=== PATIENT | male | born 1955 | race Caucasian/White ===

== ENCOUNTER 2017-04-11 02:35 | Emergency (ER) | payer OTHER ==
--- NOTE | 2017-04-11 03:54 | EDM.PDOC ---
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 The patient was getting off the truck, missed his step, and fell onto his back onto gravel, about a 3 foot fall, striking the back of his head. The gas appliance mechanic states that the patient was unconscious for about 15 seconds , then, when he woke up, needed some help to walk. He reportedly kept saying that he did not remember the fall. From the patient's perspective, he remembers getting ready to get down off the truck, and the next thing he remembers is being helped to another vehicle. He complains of a dull posterior headache, and on examination, there is a laceration to his posterior scalp. No recent illnesses. The patient does not have a PCP. Posterior Head Pain Score (Numeric/FACES): 5 - Related Data Allergies Allergy/AdvReac Type Severity Reaction Status Date / Time shellfish derived Allergy Hives Verified 04/11/17 02:43 Home Meds: Home Meds . [No Known Home Meds] 04/11/17 [History] Past Medical History - Past Surgical History HEENT Surgical History: Reports: Oral Surgery ([place] teeth extraction), Tonsillectomy GI Surgical History: Reports: Hernia, Inguinal (left) Musculoskeletal Surgical History: Reports: ORIF (right ankle) Social & Family History - Family History Family Medical History: Noncontributory - Tobacco Use Smoking Status *Q: Current Every Day Smoker Years of Tobacco use: 45 Packs/Tins Daily: 1 Packs/Tins Daily Comment: Down from 2 ppd - Caffeine Use Caffeine Use: Reports: Coffee - Alcohol Use Alcohol Use History: Yes Date/Time of Last Drink Comment: None since 2002 - Recreational Drug Use Recreational Drug Use: No - Living Situation & Occupation Living situation: Reports: Single, Alone 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 ED EXAM, HEAD INJURY - Physical Exam Exam: See Below Exam Limited By: No Limitations General Appearance: Alert, WD/WN, No Apparent Distress Head: Normocephalic, Scalp Lacerations (Approximately 2 cm, irregular, on the posterior midline scalp, with minimal associated swelling, but is mildly bleeding) Eyes: Bilateral Eye: EOMI, Normal Inspection, PERRL Ears: Normal External Exam, Normal Canal, Hearing Grossly Normal, Normal TMs Nose: Normal Inspection, Normal Mucousa, No Blood Throat/Mouth: Normal Inspection, Normal Lips, Normal Teeth, Normal Gums, Normal Oropharynx, Normal Voice, No Airway Compromise Neck: Non-Tender, Full Range of Motion, Normal Alignment, Normal Inspection Respiratory: No Respiratory Distress, Lungs Clear, Normal Breath Sounds, No Accessory Muscle Use Cardiovascular: Normal Peripheral Pulses, Regular Rate, Rhythm, No Gallop, No JVD, No Murmur, No Rub GI/Abdominal Exam: Normal Bowel Sounds, Soft, Non-Tender, No Organomegaly, No Distention, No Abnormal Bruit, No Mass (Male) Exam: Deferred Rectal (Males) Exam: Deferred Back Exam: Full Range of Motion, Normal Inspection, NT Extremities: Normal Inspection, Normal Range of Motion, No Pedal Edema, Normal Capillary Refill 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 As Tested, No Motor/Sensory Deficits, Alert, Oriented x 3 Skin: Normal Color, Warm/Dry EKG INTERPRETATION EKG Date: 04/11/17 Time: 04:25 Rhythm: NSR Rate (Beats/Min): 83 [place]: Normal P-Wave: Present QRS: Normal ST-T: Normal QT: Normal Comparison: NA - No Prior EKG Course - Vital Signs Last Recorded V/S: Last Vital Signs Temp 35.9 C 04/11/17 02:40 Pulse 81 04/11/17 02:40 Resp 16 04/11/17 02:40 BP 142/99 H 04/11/17 02:40 Pulse Ox 94 L 04/11/17 02:40 - Orders/Labs/Meds Orders: Active Orders 24 hr Category Date Time Status EKG Documentation Completion [RC] STAT Care 04/11/17 03:47 Active Cervical Spine wo Cont [CT] Stat Exams 04/11/17 03:46 Taken Head wo Cont [CT] Stat Exams 04/11/17 03:45 Taken DRUG SCREEN, URINE [URCHEM] Stat Lab 04/11/17 03:47 Ordered Labs: Laboratory Tests 04/11/17 04/11/17 04/11/17 Range/Units 04:05 04:05 04:05 WBC 18.78 H (4.23-9.07) K/mm3 RBC 5.31 (4.63-6.08) M/mm3 Hgb 15.9 (13.7-17.5) gm/L Hct 47.0 (40.1-51.0) % MCV 88.5 (79.0-92.2) fl MCH 29.9 (25.7-32.2) pg MCHC 33.8 (32.2-35.5) g/dl RDW Std Deviation 44.9 H (35.1-43.9) fL Plt Count 220 (163-337) K/mm3 MPV 9.8 (9.4-12.3) fl Neutrophils % (Manual) 86 H (40-60) % Band Neutrophils % 0 (0-10) % Lymphocytes % (Manual) 7 L (20-40) % Atypical Lymphs % 0 % Monocytes % (Manual) 7 (2-10) % Eosinophils % (Manual) 0 L (0.8-7.0) % Basophils % (Manual) 0 L (0.2-1.2) Platelet Estimate Adequate Plt Morphology Comment Normal RBC Morph Comment Normal PT 11.5 (8.0-13.0) SECONDS INR 1.07 APTT 25 (22-36) SECONDS Sodium 141 (136-145) mEq/L Potassium 4.1 (3.5-5.1) mEq/L Chloride 103 (98-107) mEq/L Carbon Dioxide 26 (21-32) mEq/L Anion Gap 16.1 H (5-15) BUN 14 (7-18) mg/dL Creatinine 1.0 (0.7-1.3) mg/dL Est Cr Clr Drug Dosing 80.10 mL/min Estimated GFR (MDRD) > 60 (>60) mL/min BUN/Creatinine Ratio 14.0 (14-18) Glucose 136 H (80-115) mg/dL Calcium 8.8 (8.5-10.1) mg/dL Total Bilirubin 0.3 (0.2-1.0) mg/dL AST 19 (15-37) U/L ALT 24 (16-63) U/L Alkaline Phosphatase 76 (46-116) U/L Total Protein 7.2 (6.4-8.2) g/dl Albumin 3.8 (3.4-5.0) g/dl Globulin 3.4 gm/dL Albumin/Globulin Ratio 1.1 (1-2) Ethyl Alcohol 0.00 (0.00) gm% Meds: Medications Discontinued Medications Generic Name Dose Route Start Last Admin Trade Name Troy PRN Reason Stop Dose Admin Ondansetron HCl 4 mg 04/11/17 05:38 04/11/17 05:45 Zofran IVPUSH 04/11/17 05:39 4 mg ONETIME ONE Administration Ondansetron HCl Confirm 04/11/17 05:46 04/11/17 05:49 Zofran Administered 04/11/17 05:47 Not Given Dose 4 mg .ROUTE .STK-MED ONE - Re-Assessments/Exams Free Text/Narrative Re-Assessment/Exam: 04/11/17 04:18 CT of the head is read by [facility] as: 1. Mild soft tissue swelling and subcutaneous contusion overlying the right parietal region with a small underlying nondisplaced hairline fracture of the right parietal calvarium seen on images 26 through 39 of series 3. 2. There is a small acute subdural hematoma present with associated posttraumatic subarachnoid hemorrhage in the right frontoparietal and parietotemporal areas. The subdural hematoma measures maximally 5 mm in thickness on image 23 of series 2. 3. No significant midline shift or transtentorial downward herniation of the brain. Notified by the [facility] Radiologist that the CT of the cervical spine is negative. 04/11/17 04:26 Case discussed with [facility] at 04:19. Case then discussed with Dr. Kvng Shaw, Emergency Physician at [facility], at 04:22. He accepts the patient for transfer. The patient will be transferred by fixed wing. The CT images were pushed to [facility] around 04:17. 04/11/17 04:34 Notified that the weather in [place] is too severe to allow landing, therefore the patient will not depart at this time. We are keeping the head of the patient 's bed at 30. 04/11/17 04:43 CT of the cervical spine is read by [facility] as: 1. No acute fractures. 2. The cervical spine alignment is within normal limits. 3. Chronic degenerative vertebral body endplate osteophytosis with diminished disc height is seen at multiple levels, C4-C7. 4. Chronic degenerative bony neural foraminal stenosis secondary to ankle joint posterior facet joint arthropathy, on the left at C3/C4 and bilaterally at C4/C5 , C5/C6 and C6/C7 to a lesser degree. 5. No significant spinal canal stenosis. 04/11/17 05:39 Notified that the patient has become very nauseated. I have ordered Zofran 4 mg IVP. 04/11/17 06:06 Because the weather in [place] is forecasted to be poor for many hours, the decision has been made to transport the patient by ground. 04/11/17 06:10 Notified that the weather has cleared in [place], therefore the patient will go by fixed wing. The [place] flight crew and ambulance are here now. Departure - Departure Time of Disposition: 04:25 Disposition: DC/Tfer to Acute Hospital 02 Condition: Fair Clinical Impression: Skull fracture, Occipital scalp laceration, Subdural hemorrhage, Concussion, Subarachnoid hemorrhage - Discharge Information - My Orders Last 24 Hours: My Active Orders 04/11/17 03:45 Head wo Cont [CT] Stat 04/11/17 03:46 Cervical Spine wo Cont [CT] Stat 04/11/17 03:47 EKG Documentation Completion [RC] STAT DRUG SCREEN, URINE [URCHEM] Stat - Assessment/Plan Last 24 Hours: My Active Orders 04/11/17 03:45 Head wo Cont [CT] Stat 04/11/17 03:46 Cervical Spine wo Cont [CT] Stat 04/11/17 03:47 EKG Documentation Completion [RC] STAT DRUG SCREEN, URINE [URCHEM] Stat
[2017-04-11] MEDS: Ondansetron 4 MG/2 ML SDV IVPUSH ONE (05:45)
[2017-04-11] MEDS: Ondansetron 4 MG/2 ML SDV ONE (05:49)
--- NOTE | 2017-04-11 08:46 | CT ---
Head CT Technique: Multiple axial sections through the brain were obtained. Intravenous contrast was not utilized. Comparison: No prior intracranial imaging. Findings: Small subdural hematoma is seen on the right side as well as subarachnoid hemorrhage. Subdural hematoma measures at a maximum of 5 mm in thickness. No midline shift is seen. No parenchymal hemorrhage is identified. Nondisplaced right parietal fracture is seen with overlying soft tissue swelling seen within the scalp. Minimal mucosal thickening seen within the posterior ethmoid sinus which is incidental. No additional calvarial abnormality is seen. Impression: 1. Small right sided subdural hematoma as well as subarachnoid hemorrhage on the right side. This causes no midline shift at this time. No parenchymal hemorrhage is seen. 2. Nondisplaced right parietal fracture with overlying soft tissue swelling within the scalp. Diagnostic code #5 Agree with preliminary report issued by [facility] ([facility] preliminary report dictated on 04/11/17, 5:15 AM Central Time)
--- NOTE | 2017-04-11 08:46 | CT ---
CT cervical spine Technique: Multiple axial sections were obtained from above C1 inferiorly to the bottom of T3. Reconstructed sagittal and coronal images were reviewed. Comparison: No previous cervical spine imaging is available. Severe disc space narrowing is noted at C4-C5, C5-C6 and C6-C7. Posterior disc space narrowing is noted at C3-C4. Mild diffuse posterior spurring is seen off the endplates as well as mild scattered degenerative endplate spurring is noted within the uncovertebral joints. Scoliosis is noted. No abnormal subluxation is seen. Degenerative change is noted between the dens and anterior arch of C1. Diffuse degenerative apophyseal change is seen. Scattered areas of neural foraminal stenosis are seen which are most severe to the left side at C3-C4, to the left side at C4-C5 and to the left side at C5-C6. Other lesser areas of scattered neural foraminal stenosis are seen. No bony central canal stenosis is noted. No fracture is seen. Impression: 1. Diffuse degenerative change. Scoliosis. 2. Nothing acute is seen on CT study of the cervical spine. Diagnostic code #3 Agree with preliminary report issued by [facility] ([facility] preliminary report dictated on 04/11/17, 5:35 AM Central Time)
== END 2017-04-11 06:45 ==
LOC: JD.ED 02:35
DX: S06.5X1A Traumatic subdural hemorrhage with loss of consciousness of 30 minutes or less, initial encounter (principal); S06.6X1A Traumatic subarachnoid hemorrhage with loss of consciousness of 30 minutes or less, initial encounter; S02.91XA Unspecified fracture of skull, initial encounter for closed fracture; S01.01XA Laceration without foreign body of scalp, initial encounter; F17.210 Nicotine dependence, cigarettes, uncomplicated; Z91.013 Allergy to seafood; W01.10XA Fall on same level from slipping, tripping and stumbling with subsequent striking against unspecified object, initial encounter
CPT/HCPCS: 36415; 70450; 72125; 80053; 85025; 85610; 85730; 93005; 96374; 99285; G0480; J2405; 93010